=== PATIENT | female | born 1965 | race Caucasian/White ===

== ENCOUNTER 2016-11-07 11:43 | Emergency (ER) | payer OTHER ==
[2016-11-07] MEDS ORDERED: Motrin,Rufen800 MG PO (13:43)
[2016-11-07] MEDS ORDERED: HYDROCODONE BIT1 T11 PO (13:43)
== END 2016-11-07 13:47 | disposition home or self-care (01) ==
LOC: ED 11:43
DX: M75.02 Adhesive capsulitis of left shoulder (principal); F17.200 Nicotine dependence, unspecified, uncomplicated

== ENCOUNTER 2018-08-06 15:25 | Emergency (ER) | payer OTHER ==
[~2018-08-06] VITALS: Ht 170.1 cm; Wt 90.7 kg
[~2018-08-06 15:25] MED LIST: HYDROCODONE BIT1 T11 PO; Motrin,Rufen800 MG PO
== END 2018-08-06 16:44 | disposition left against medical advice (07) ==
LOC: ED 15:25
DX: S83.92XA Sprain of unspecified site of left knee, initial encounter (principal); X58.XXXA Exposure to other specified factors, initial encounter; Y93.89 Activity, other specified; Y92.89 Other specified places as the place of occurrence of the external cause; Y99.8 Other external cause status

== ENCOUNTER 2018-12-24 14:50 | Emergency (ER) | payer OTHER ==
[~2018-12-24] VITALS: Ht 170.1 cm; Wt 107.0 kg
[2018-12-24 15:58] LABS: BASO # 0.1 10*3/uL (0.0-0.1); BASO % 0.6 % (0.0-1.0); EOS # 0.3 10*3/uL (0.0-0.4); EOS % 2.1 % (1.0-4.0); HEMATOCRIT 45.4 % (37.0-47.0); HEMOGLOBIN 14.8 g/dl (12.0-16.0); LYMPH # 2.3 10*3/uL (1.3-4.4); LYMPH % 19.3 % (27.0-41.0); MEAN CELL VOLUME 94.2 fl (81.0-99.0); MEAN CORPUSCULAR HGB 30.7 pg (27.0-31.0); MEAN CORPUSCULAR HGB CONC 32.6 g/dl (33.0-37.0); MEAN PLATELET VOLUME 10.4 fl (9.6-12.3); MONO # 0.9 10*3/uL (0.1-1.0); MONO % 7.2 % (3.0-9.0); NEUT # 8.4 10*3/uL (2.3-7.9); NEUT % 70.5 % (47.0-73.0); PLATELET COUNT AUTOMATED 315 10*3/uL (130-400); RED BLOOD COUNT 4.82 10*6/uL (4.10-5.10); RED CELL DISTRI WIDTH 13.4 % (0-14.5)
[2018-12-24 16:13] LABS: ALBUMIN 3.8 gm/dl (3.1-4.5); ALKALINE PHOSPHATASE 107 U/L (45-117); BUN 12 mg/dl (7-24); CHLORIDE 101 mmol/L (98-107); CREATININE 0.86 mg/dL (0.55-1.02); SGOT/AST 14 IU/L (3-35); SGPT/ALT 62 U/L (12-78); SODIUM 140 mmol/L (136-145); TOTAL PROTEIN 8.4 gm/dL (6.4-8.2)
[2018-12-24] MEDS ORDERED: FLONASE ALLERG9.9 ML NAS (19:45)
[2018-12-24] MEDS ORDERED: ZYRTEC10 MG PO (19:45)
[2018-12-24] MEDS ORDERED: AUGMENTIN 875875 MG PO (19:45)
[2018-12-24] MEDS ORDERED: MEDROL DOSEPAK4 MG PO (19:45)
== END 2018-12-24 20:00 | disposition home or self-care (01) ==
LOC: ED 14:50
PROVIDERS: Physician Assistant
DX: J32.9 Chronic sinusitis, unspecified (principal); J02.9 Acute pharyngitis, unspecified

== ENCOUNTER 2019-01-14 09:12 | Emergency (ER) | payer OTHER ==
[~2019-01-14] VITALS: Ht 170.1 cm; Wt 107.0 kg
[~2019-01-14 09:12] MED LIST changes: +AUGMENTIN 875875 MG PO; +FLONASE ALLERG9.9 ML NAS; +MEDROL DOSEPAK4 MG PO; +ZYRTEC10 MG PO
[2019-01-14 09:41] LABS: BASO % 0.4 % (0.0-1.0); EOS # 0.1 10*3/uL (0.0-0.4); EOS % 0.8 % (1.0-4.0); HEMATOCRIT 42.5 % (37.0-47.0); HEMOGLOBIN 13.7 g/dl (12.0-16.0); LYMPH # 0.8 10*3/uL (1.3-4.4); LYMPH % 11.1 % (27.0-41.0); MEAN CORPUSCULAR HGB 30.3 pg (27.0-31.0); MEAN CORPUSCULAR HGB CONC 32.2 g/dl (33.0-37.0); MEAN PLATELET VOLUME 9.8 fl (9.6-12.3); MONO # 0.7 10*3/uL (0.1-1.0); MONO % 9.5 % (3.0-9.0); NEUT # 5.6 10*3/uL (2.3-7.9); NEUT % 77.6 % (47.0-73.0); PLATELET COUNT AUTOMATED 208 10*3/uL (130-400); RED BLOOD COUNT 4.52 10*6/uL (4.10-5.10); RED CELL DISTRI WIDTH 13.6 % (0-14.5); WHITE BLOOD COUNT 7.2 10*3/uL (4.8-10.8)
[2019-01-14 10:06] LABS: ALBUMIN 3.3 gm/dl (3.1-4.5); ALKALINE PHOSPHATASE 87 U/L (45-117); BUN 12 mg/dl (7-24); CHLORIDE 103 mmol/L (98-107); POTASSIUM 3.8 mmol/L (3.5-5.1); SGOT/AST 11 IU/L (3-35); SGPT/ALT 21 U/L (12-78); SODIUM 137 mmol/L (136-145); TOTAL PROTEIN 7.4 gm/dL (6.4-8.2)
[2019-01-14] MEDS ORDERED: AVPAK AZITHROM250 MG PO (10:36)
[2019-01-14] MEDS ORDERED: PROAIR HFA8.5 GM INH (10:36)
[2019-01-14] MEDS ORDERED: PREDNISONE50 MG PO (10:36)
[2019-01-14] MEDS ORDERED: TESSALON PERLE100 MG PO (10:36)
== END 2019-01-14 10:42 | disposition home or self-care (01) ==
LOC: ED 09:12
PROVIDERS: Nurse Practitioner Family
DX: J20.9 Acute bronchitis, unspecified (principal); I10 Essential (primary) hypertension; F17.200 Nicotine dependence, unspecified, uncomplicated; Z79.2 Long term (current) use of antibiotics; Z79.899 Other long term (current) drug therapy; Z90.49 Acquired absence of other specified parts of digestive tract

== ENCOUNTER → 2021-01-05 | Outpatient (CLI) | payer OTHER ==
[~2021-01-05] MED LIST changes: +AVPAK AZITHROM250 MG PO; +PREDNISONE50 MG PO; +PROAIR HFA8.5 GM INH; +TESSALON PERLE100 MG PO
[2021-01-05 15:10] LABS: BASO # 0.1 10*3/uL (0.0-0.1); BASO % 0.4 % (0.0-1.0); EOS # 0.2 10*3/uL (0.0-0.4); EOS % 1.4 % (1.0-4.0); HEMATOCRIT 42.9 % (37.0-47.0); LYMPH # 3.5 10*3/uL (1.3-4.4); LYMPH % 25.9 % (27.0-41.0); MEAN CELL VOLUME 92.3 fl (81.0-99.0); MEAN CORPUSCULAR HGB 29.5 pg (27.0-31.0); MEAN CORPUSCULAR HGB CONC 31.9 g/dl (33.0-37.0); MEAN PLATELET VOLUME 10.5 fl (9.6-12.3); MONO # 0.8 10*3/uL (0.1-1.0); MONO % 6.2 % (3.0-9.0); NEUT # 8.8 10*3/uL (2.3-7.9); NEUT % 65.8 % (47.0-73.0); PLATELET COUNT AUTOMATED 285 10*3/uL (130-400); RED BLOOD COUNT 4.65 10*6/uL (4.10-5.10); RED CELL DISTRI WIDTH 13.7 % (0-14.5); WHITE BLOOD COUNT 13.3 10*3/uL (4.8-10.8)
[2021-01-05 15:27] LABS: ALBUMIN 3.4 gm/dl (3.1-4.5); ALKALINE PHOSPHATASE 83 U/L (45-117); BUN 24 mg/dl (7-24); CHLORIDE 105 mmol/L (98-107); CREATININE 1.01 mg/dL (0.55-1.02); POTASSIUM 4.6 mmol/L (3.5-5.1); SGOT/AST 10 IU/L (3-35); SGPT/ALT 26 U/L (12-78); SODIUM 140 mmol/L (136-145); TOTAL PROTEIN 7.2 gm/dL (6.4-8.2)
== END | disposition home or self-care (01) ==
LOC: LAB 00:14
PROVIDERS: ATTEND Internal Medicine
DX: J18.9 Pneumonia, unspecified organism (principal)

== ENCOUNTER → 2021-04-29 | Outpatient (CLI) | payer OTHER | END | disposition home or self-care (01) | LOC: US 14:57 | PROVIDERS: ATTEND Internal Medicine | DX: I25.10 Atherosclerotic heart disease of native coronary artery without angina pectoris (principal); I70.203 Unspecified atherosclerosis of native arteries of extremities, bilateral legs; E11.42 Type 2 diabetes mellitus with diabetic polyneuropathy ==

== ENCOUNTER → 2021-06-22 | Outpatient (CLI) | payer OTHER | END | disposition home or self-care (01) | LOC: COVID19 16:07 → LAB 16:07 | PROVIDERS: ATTEND Surgery Vascular Surgery | DX: Z01.812 Encounter for preprocedural laboratory examination (principal); Z20.822 Contact with and (suspected) exposure to COVID-19 ==

== ENCOUNTER → 2021-08-03 | Outpatient (CLI) | payer OTHER | END | disposition home or self-care (01) | LOC: COVID19 17:37 | PROVIDERS: ATTEND Internal Medicine | DX: Z11.52 Encounter for screening for COVID-19 (principal) ==

== ENCOUNTER 2022-01-27 15:11 | Emergency (ER) | payer OTHER ==
[2022-01-27 15:55] LABS: BILIRUBIN Negative (Negative); BLOOD Negative (Negative); CLARITY Clear (Clear); COLOR Yellow (Yellow); GLUCOSE Negative (Negative); KETONE Negative (Negative); LEUKO ESTERASE 3+ (Negative); NITRITE Negative (Negative); UROBILINOGEN 0.2 E.U./dl (0.0-1.0)
[2022-01-27 16:18] LABS: BACTERIA 2+; WBC 31-40 wbc/hpf (0-5)
[2022-01-27 16:29] LABS: BASO # 0.1 10*3/uL (0.0-0.1); BASO % 0.6 % (0.0-1.0); EOS # 0.5 10*3/uL (0.0-0.4); EOS % 5.9 % (1.0-4.0); HEMATOCRIT 39.5 % (37.0-47.0); LYMPH # 2.2 10*3/uL (1.3-4.4); LYMPH % 26.7 % (27.0-41.0); MEAN CELL VOLUME 88.6 fl (81.0-99.0); MEAN CORPUSCULAR HGB 28.3 pg (27.0-31.0); MEAN CORPUSCULAR HGB CONC 31.9 g/dl (33.0-37.0); MONO # 0.6 10*3/uL (0.1-1.0); MONO % 7.6 % (3.0-9.0); NEUT # 4.8 10*3/uL (2.3-7.9); NEUT % 58.7 % (47.0-73.0); PLATELET COUNT AUTOMATED 228 10*3/uL (130-400); RED BLOOD COUNT 4.46 10*6/uL (4.10-5.10); RED CELL DISTRI WIDTH 14.3 % (0-14.5); WHITE BLOOD COUNT 8.2 10*3/uL (4.8-10.8)
[2022-01-27 16:45] LABS: ALKALINE PHOSPHATASE 80 U/L (45-117); BUN 13 mg/dl (7-24); CHLORIDE 105 mmol/L (98-107); CREATININE 0.91 mg/dL (0.55-1.02); LIPASE 152 U/L (73-393); POTASSIUM 3.5 mmol/L (3.5-5.1); SGOT/AST 19 IU/L (3-35); SGPT/ALT 30 U/L (12-78); SODIUM 140 mmol/L (136-145); TOTAL PROTEIN 6.5 gm/dL (6.4-8.2)
[2022-01-27] MEDS ORDERED: IBUPROFEN600 MG PO (19:19)
[2022-01-27] MEDS ORDERED: SEPTDS PO (19:19)
== END 2022-01-27 19:29 | disposition home or self-care (01) ==
LOC: ED 15:11
PROVIDERS: Physician Assistant
DX: N39.0 Urinary tract infection, site not specified (principal)

== ENCOUNTER → 2022-03-04 | Outpatient (CLI) | payer OTHER ==
[~2022-03-04] MED LIST changes: +IBUPROFEN600 MG PO; +SEPTDS PO
== END | disposition home or self-care (01) ==
LOC: CT 00:09
PROVIDERS: ATTEND Internal Medicine Nephrology
DX: K57.30 Diverticulosis of large intestine without perforation or abscess without bleeding (principal); K76.0 Fatty (change of) liver, not elsewhere classified; Z90.49 Acquired absence of other specified parts of digestive tract; N28.1 Cyst of kidney, acquired

== ENCOUNTER → 2022-03-25 | Outpatient (CLI) | payer OTHER | END | disposition home or self-care (01) | LOC: RAD 00:06 | PROVIDERS: ATTEND Internal Medicine Nephrology | DX: M16.0 Bilateral primary osteoarthritis of hip (principal) ==

== ENCOUNTER 2022-11-06 10:46 | Emergency (ER) | payer OTHER ==
[~2022-11-06] VITALS: Wt 108.9 kg
== END 2022-11-06 11:54 | disposition home or self-care (01) ==
LOC: ED 10:46
DX: B37.31 Acute candidiasis of vulva and vagina (principal); E11.9 Type 2 diabetes mellitus without complications

== ENCOUNTER → 2023-02-10 | Outpatient (CLI) | payer OTHER | END | disposition home or self-care (01) | LOC: MAMMO 00:11 | PROVIDERS: ATTEND Internal Medicine | DX: Z12.31 Encounter for screening mammogram for malignant neoplasm of breast (principal) ==

== ENCOUNTER 2023-07-01 20:36 | Emergency (ER) | payer OTHER ==
[~2023-07-01] VITALS: Ht 170.1 cm; Wt 104.3 kg
[2023-07-01] MEDS ORDERED: NAPROSYN500 MG PO (21:57)
[2023-07-01] MEDS ORDERED: CYCLOBENZAPRINE10 MG PO (21:57)
== END 2023-07-01 22:04 | disposition home or self-care (01) ==
LOC: ED 20:36
DX: S60.221A Contusion of right hand, initial encounter (principal); R51.9 Headache, unspecified; E11.9 Type 2 diabetes mellitus without complications; V73.5XXA Driver of bus injured in collision with car, pick-up truck or van in traffic accident, initial encounter; Y93.89 Activity, other specified; Y92.410 Unspecified street and highway as the place of occurrence of the external cause; Y99.8 Other external cause status

== ENCOUNTER → 2023-10-13 | Outpatient (CLI) | payer OTHER ==
[~2023-10-13] MED LIST changes: +CYCLOBENZAPRINE10 MG PO; +NAPROSYN500 MG PO
== END | disposition home or self-care (01) ==
LOC: MRI 00:55
PROVIDERS: ATTEND Internal Medicine
DX: I67.82 Cerebral ischemia (principal); R51.9 Headache, unspecified; J32.0 Chronic maxillary sinusitis

== ENCOUNTER → 2024-04-24 | Outpatient (CLI) | payer OTHER | END | disposition home or self-care (01) | LOC: CT 11:00 | PROVIDERS: ATTEND Physician Assistant | DX: F17.200 Nicotine dependence, unspecified, uncomplicated (principal) ==

== ENCOUNTER → 2024-07-27 | Outpatient (CLI) | payer OTHER | END | disposition home or self-care (01) | LOC: ORTHO 04:26 | PROVIDERS: ATTEND Orthopaedic Surgery | DX: M19.011 Primary osteoarthritis, right shoulder (principal) ==

== ENCOUNTER → 2024-10-26 | Outpatient (CLI) | payer OTHER | END | disposition home or self-care (01) | LOC: ORTHO 01:03 | PROVIDERS: ATTEND Orthopaedic Surgery | DX: M19.011 Primary osteoarthritis, right shoulder (principal); M25.511 Pain in right shoulder ==

== ENCOUNTER → 2024-11-05 | Outpatient (CLI) | payer OTHER | END | disposition home or self-care (01) | LOC: CT 13:00 | PROVIDERS: ATTEND Internal Medicine Critical Care Medicine | DX: R91.8 Other nonspecific abnormal finding of lung field (principal) ==

== ENCOUNTER 2024-12-24 06:59 | Emergency (ER) | payer OTHER ==
[~2024-12-24] VITALS: Ht 170.1 cm; Wt 99.8 kg
[2024-12-24] MEDS ORDERED: LIPITOR40 MG PO (07:20)
[2024-12-24] MEDS ORDERED: ZETIA10 MG PO (07:21)
[2024-12-24] MEDS ORDERED: PLAVIX75 M1 PO (07:21)
[2024-12-24] MEDS ORDERED: METFORMIN HYD1000 MG PO (07:22)
[2024-12-24] MEDS ORDERED: VAZALORE81 MG PO (07:22)
[2024-12-24] MEDS ORDERED: LYRICA150 M1 PO (07:22)
[2024-12-24] MEDS ORDERED: ZESTRIL2.5 MG PO (07:23)
[2024-12-24] MEDS ORDERED: TOUJEO SOL300 UNIT/1 SQ (07:24)
[2024-12-24] MEDS ORDERED: Ketorolac Tromethamine 30 MG/ML VIAL IM ONE (07:40)
[2024-12-24] MEDS ORDERED: Albuterol Sulfate 1.25 MG/3 ML VIAL NEB ONE (07:40)
[2024-12-24] MEDS ORDERED: HYDROCODONE-AC1 EAC1 PO (09:01)
[2024-12-24] MEDS ORDERED: Orphenadrine C100 MG PO (09:01)
== END 2024-12-24 09:13 | disposition home or self-care (01) ==
LOC: ED 06:59
DX: M54.12 Radiculopathy, cervical region (principal); J44.1 Chronic obstructive pulmonary disease with (acute) exacerbation; R20.2 Paresthesia of skin; M79.642 Pain in left hand; E11.9 Type 2 diabetes mellitus without complications; E78.5 Hyperlipidemia, unspecified; Z79.4 Long term (current) use of insulin

== ENCOUNTER → 2025-03-13 | Outpatient (CLI) | payer OTHER ==
[~2025-03-13] MED LIST changes: +HYDROCODONE-AC1 EAC1 PO; +LIPITOR40 MG PO; +LYRICA150 M1 PO; +METFORMIN HYD1000 MG PO; +Orphenadrine C100 MG PO; +PLAVIX75 M1 PO; +TOUJEO SOL300 UNIT/1 SQ; +VAZALORE81 MG PO; +ZESTRIL2.5 MG PO; +ZETIA10 MG PO
== END | disposition home or self-care (01) ==
LOC: US 14:00
PROVIDERS: ATTEND Internal Medicine Cardiovascular Disease
DX: I82.442 Acute embolism and thrombosis of left tibial vein (principal); I87.2 Venous insufficiency (chronic) (peripheral); I73.9 Peripheral vascular disease, unspecified; R60.0 Localized edema

== ENCOUNTER 2025-05-01 12:46 | Emergency (ER) | payer OTHER ==
[~2025-05-01] VITALS: Wt 113.4 kg
[2025-05-01] MEDS ORDERED: SODIUM CHLORIDE 0.9% 1,000 ML IV ONE (13:55)
[2025-05-01 14:07] LABS: BASO # 0.1 10*3/uL (0.0-0.1); BASO % 0.8 % (0.0-1.0); EOS # 0.6 10*3/uL (0.0-0.4); HEMATOCRIT 40.1 % (37.0-47.0); MEAN CELL VOLUME 91.6 fl (81.0-99.0); MEAN CORPUSCULAR HGB 28.8 pg (27.0-31.0); MEAN CORPUSCULAR HGB CONC 31.4 g/dl (33.0-37.0); MEAN PLATELET VOLUME 10.9 fl (9.6-12.3); MONO # 0.9 10*3/uL (0.1-1.0); MONO % 8.1 % (3.0-9.0); NEUT # 7.6 10*3/uL (2.3-7.9); NEUT % 67.1 % (47.0-73.0); PLATELET COUNT AUTOMATED 226 10*3/uL (130-400); RED BLOOD COUNT 4.38 10*6/uL (4.10-5.10); RED CELL DISTRI WIDTH 14.8 % (0-14.5); WHITE BLOOD COUNT 11.3 10*3/uL (4.8-10.8)
[2025-05-01 14:41] LABS: POTASSIUM 4.9 mmol/L (3.4-5.1)
[2025-05-01 15:49] LABS: BILIRUBIN Negative (Negative); BLOOD Negative (Negative); CLARITY Cloudy (Clear); COLOR Yellow (Yellow); GLUCOSE Negative (Negative); KETONE Trace (Negative); LEUKO ESTERASE 2+ (Negative); NITRITE Negative (Negative); PH 5.5 (4.5-8.0); UROBILINOGEN 0.2 E.U./dl (0.0-1.0)
[2025-05-01 16:13] LABS: BACTERIA 1+; MUCOUS TRACE; RBC 0-2 rbc/hpf (0-2); WBC 16-20 wbc/hpf (0-5)
[2025-05-01] MEDS ORDERED: cefTRIAXone Sodium 1 GM/10 ML SYR IV ONE (16:15)
[2025-05-01] MEDS ORDERED: CIPRO500 MG PO (16:50)
== END 2025-05-01 17:10 | disposition left against medical advice (07) ==
LOC: ED 12:46
PROVIDERS: Nurse Practitioner Family
DX: N39.0 Urinary tract infection, site not specified (principal); N17.9 Acute kidney failure, unspecified; R53.83 Other fatigue; I95.9 Hypotension, unspecified; E11.40 Type 2 diabetes mellitus with diabetic neuropathy, unspecified; I10 Essential (primary) hypertension; J44.9 Chronic obstructive pulmonary disease, unspecified; Z79.899 Other long term (current) drug therapy; Z79.4 Long term (current) use of insulin; Z79.82 Long term (current) use of aspirin

== ENCOUNTER → 2025-07-11 | Outpatient (CLI) | payer OTHER ==
[~2025-07-11] MED LIST changes: +CIPRO500 MG PO
== END | disposition home or self-care (01) ==
LOC: CT 05-23 10:00
PROVIDERS: ATTEND Internal Medicine Critical Care Medicine
DX: R91.8 Other nonspecific abnormal finding of lung field (principal); J44.9 Chronic obstructive pulmonary disease, unspecified; I25.10 Atherosclerotic heart disease of native coronary artery without angina pectoris; Z68.39 Body mass index [BMI] 39.0-39.9, adult; Z87.891 Personal history of nicotine dependence

== ENCOUNTER → 2025-09-24 | Outpatient (CLI) | payer OTHER ==
[2025-09-24 16:09] LABS: MEAN CELL VOLUME 92.7 fl (81.0-99.0); MEAN CORPUSCULAR HGB 30.2 pg (27.0-31.0); MEAN PLATELET VOLUME 10.6 fl (9.6-12.3); NUCLEATED RED BLOOD CELL 0.0 % (0.0-0.0); NUCLEATED RED BLOOD CELL 0.0 10*3/uL (0.0-0.0); PLATELET COUNT AUTOMATED 236.0 10*3/uL (130-400); RED CELL DISTRI WIDTH 14.4 % (0-14.5)
[2025-09-24 16:41] LABS: BUN 16.0 mg/dl (9-23); SGPT/ALT 17.0 U/L (5-49)
== END | disposition home or self-care (01) ==
LOC: LAB 15:32
PROVIDERS: Physician Assistant; ATTEND Nurse Practitioner Family
DX: E11.9 Type 2 diabetes mellitus without complications (principal); G62.9 Polyneuropathy, unspecified; R60.0 Localized edema

== ENCOUNTER → 2025-10-18 | Outpatient (CLI) | payer OTHER ==
[2025-10-18 16:05] LABS: BILIRUBIN Negative (Negative); BLOOD Negative (Negative); CLARITY Clear (Clear); COLOR Yellow (Yellow); KETONE Negative (Negative); LEUKO ESTERASE 1+ (Negative); NITRITE Negative (Negative); PH 6.0 (4.5-8.0); SPECIFIC GRAVITY 1.020 (1.001-1.030); UROBILINOGEN 0.2 E.U./dl (0.0-1.0)
[2025-10-18 16:15] LABS: BACTERIA 1+
[2025-10-18 16:27] LABS: LDL CHOLESTEROL 60 mg/dL (9-159)
== END | disposition home or self-care (01) ==
LOC: LAB 15:42
PROVIDERS: Nurse Practitioner Family; ATTEND Nurse Practitioner Family
DX: R31.0 Gross hematuria (principal)